=== PATIENT | male | born 1955 ===

== ENCOUNTER 2023-03-08 12:46 | Emergency (ER) | payer MEDICARE ==
[~2023-03-08] VITALS: Ht 177.8 cm; Wt 112.9 kg
[2023-03-08 13:31] VITALS: BP 149/87; PULSE 77; RESP 16
[2023-03-08 15:47] LABS: BASOPHILS # (AUTO) 0.09 K/uL (0.00-0.20); BASOPHILS % (AUTO) 0.9 % (0.0-5.0); EOSINOPHILS # (AUTO) 0.17 K/uL (0.00-0.70); EOSINOPHILS % (AUTO) 1.6 % (0.0-8.0); HEMATOCRIT 47.9 % (42-54); IMMATURE GRANULOCYTE ABSOLUTE 0.04 K/uL (0-1); LYMPHOCYTES % (AUTO) 28.3 % (21.0-51.0); MEAN CORPUSCULAR HEMOGLOBIN 27.9 pg (27.0-33.0); MEAN CORPUSCULAR HGB CONC 32.2 g/dL (32.0-36.0); MEAN CORPUSCULAR VOLUME 86.9 fL (79-99); MONOCYTES # (AUTO) 0.7 K/uL (0.1-1.0); MONOCYTES % (AUTO) 6.4 % (3.0-13.0); NEUTROPHILS # (AUTO) 6.6 K/uL (1.8-7.7); NEUTROPHILS % (AUTO) 62.4 % (40.0-77.0); PLATELET COUNT (AUTO) 236 K/uL (130-400); RED BLOOD CELL COUNT(AUTO) 5.51 MIL/uL (4.50-6.20); RED CELL DISTRIBUTION WIDTH 14.2 % (11.0-15.5); WHITE BLOOD COUNT (AUTO) 10.6 K/uL (4.8-10.8)
[2023-03-08 16:06] LABS: CREATININE 1.2 mg/dL (0.5-1.5); POTASSIUM 4.7 mmol/L (3.5-5.1)
[2023-03-08 16:08] LABS: ALBUMIN 3.7 g/dL (3.5-5.0); BILIRUBIN,TOTAL 0.3 mg/dL (0.2-1.0); TOTAL PROTEIN, SERUM 7.1 g/dL (6.0-8.3)
[2023-03-08] MEDS ORDERED: IBUP-2070 PO (18:14)
[2023-03-08] MEDS ORDERED: KETOROLAC 30MG VIAL (30MG/ML) IM ONE (18:30)
== END 2023-03-08 19:08 | disposition home or self-care (01) ==
LOC: EDH 12:46
DX: M25.512 Pain in left shoulder (principal); E11.9 Type 2 diabetes mellitus without complications
CPT/HCPCS: 99285; 71045; 84484; 80053; 85025; 36415; 96372; 93005; J1885

== ENCOUNTER 2023-03-12 06:30 | Emergency (ER) | payer MEDICARE ==
[~2023-03-12] VITALS: Ht 177.8 cm; Wt 95.3 kg
[~2023-03-12 06:30] MED LIST: IBUP-2070 PO
[2023-03-12] MEDS: KETOROLAC 30MG VIAL (30MG/ML) IVP ONE (06:45)
[2023-03-12] MEDS: SOLU-MEDROL 125MG VIAL IVP ONE (06:45)
[2023-03-12] MEDS: CYCLOBENZAPRINE HCL 10 MG TABLET PO ONE (06:45)
[2023-03-12] MEDS: HYDROCODONE/ACETAMINOPHEN 5/325 MG TAB PO ONE (08:40)
[2023-03-12] MEDS ORDERED: HYDR-4060 PO (09:12)
[2023-03-12 09:17] VITALS: BP 155/60; PULSE 66; RESP 18; O2SAT 100
== END 2023-03-12 09:18 | disposition home or self-care (01) ==
LOC: EDH 06:30
DX: M54.50 Low back pain, unspecified (principal); E11.9 Type 2 diabetes mellitus without complications
CPT/HCPCS: 99285; 96374; 72131; 96375; J2930; J1885